=== PATIENT | female | born 1990 | race Two or more races ===

== ENCOUNTER 2016-09-11 19:32 | Observation (INO) | payer MEDICAID ==
[~2016-09-11 19:32] MED LIST: PRENPAK46 OR
== END 2016-09-11 21:27 | disposition home or self-care (01) | DRG 566 ==
LOC: LDRP 19:32
PROVIDERS: ADMIT Specialist; ATTEND Specialist
DX: O26.893 Other specified pregnancy related conditions, third trimester (principal); R10.2 Pelvic and perineal pain; N89.8 Other specified noninflammatory disorders of vagina; Z3A.34 34 weeks gestation of pregnancy
CPT/HCPCS: 59025; 81002; G0378

== ENCOUNTER 2016-10-15 08:20 | Inpatient (IN) | payer MEDICAID ==
[~2016-10-15] VITALS: Ht 154.9 cm; Wt 79.8 kg
[2016-10-15] VITALS (10 sets, daily range): BP systolic 108–133; BP diastolic 39–80
[2016-10-15] MEDS ORDERED: PREN-153 OR (09:06)
[2016-10-15 09:28] LABS: Basophils # (auto) 0 uL; Basophils % (auto) 0.2 % (0.0-2.0); Eosinophils # (auto) 0.1 uL; Eosinophils % (auto) 0.7 % (0.0-7.0); Hematocrit 33.5 % (36.0-46.0); Hemoglobin 11.2 g/dL (12.2-16.2); Lymphocytes # (auto) 1.8 uL; Lymphocytes % (auto) 14.6 % (10.0-50.0); Mean Corpuscular Hemoglobin 30.5 pg (28.0-32.0); Mean Corpuscular Hgb Conc. 33.5 g/dL (32.0-36.0); Mean Corpuscular Volume 90.9 fL (80.0-100.0); Mean Platelet Volume 12.7 fL (7.4-10.4); Monocytes # (auto) 0.9 uL; Monocytes % (auto) 7.2 % (0.0-12.0); Neutrophils # (auto) 9.7 uL; Neutrophils % (auto) 77.3 % (37.0-80.0); Platelet Count (auto) 113 10^3/uL (140-450); SUSPECT VIEW TRANSMISSION; White Blood Cell 12.6 10^3/uL (4.4-10.8)
[2016-10-15] MEDS: LACTATED RINGER'S 1,000 ML IV SCH ×3 (09:35→19:00)
[2016-10-15 09:46] LABS: Partial Thromboplastin Time 26.1 sec (22.64-33.71); Prothrombin Time 9.6 sec (9.37-12.3)
[2016-10-15 09:49] LABS: INR 0.89 (0.9-1.15)
[2016-10-15 10:05] LABS: Albumin 2.5 g/dL (3.4-5.0); BUN/Creatinine Ratio 12.2; Bilirubin, Total 0.3 mg/dL (0.2-1.0); Calcium 8.9 mg/dL (8.5-10.1); Potassium 3.9 mmol/L (3.5-5.1); Total Protein 6.6 g/dL (6.4-8.2)
[2016-10-15 10:10] LABS: Giant Platelets Few; Large Platelets MODERATE; Platelet Estimate Decreased
[2016-10-15] MEDS ORDERED: TETRACAINE 1% INJ 2 ML VIAL IJ ONE (11:42)
[2016-10-15] MEDS ORDERED: fentaNYL CITRATE 100 MCG/2 ML VL ONE (11:54)
[2016-10-15] MEDS ORDERED: MORPHINE SULF(PF) 0.5MG/ML 10ML VIAL ONE (11:54)
[2016-10-15] MEDS ORDERED: OXYTOCIN 10 UNIT/ML 10ML VIAL ONE (11:55)
[2016-10-15] MEDS ORDERED: ONDANSETRON HCL 4 MG/2 ML VIAL ONE (11:55)
[2016-10-15] MEDS ORDERED: ceFAZolin 1GM VL ONE (11:55)
[2016-10-15] MEDS ORDERED: ePHEDrine SULFATE 50 MG/ML AMP ONE (11:58)
[2016-10-15] MEDS ORDERED: HYDROmorphone HCL 2 MG/ML VL IV PRN ×3 (12:45→13:15)
[2016-10-15] MEDS ORDERED: KETOROLAC TROMETH 30 MG/ML 1ML VIAL IV PRN ×2 (12:45→13:15)
[2016-10-15] MEDS ORDERED: ONDANSETRON HCL 4 MG/2 ML VIAL IV PRN ×2 (13:00→13:15)
[2016-10-15] MEDS ORDERED: MORPHINE SULF INJ 2 MG/ML SYRINGE 1ML IV PRN (13:00)
[2016-10-15] MEDS: LACT. RINGERS/OXYTOCIN 20UNITS 1,000 ML IV SCH ×2 (13:00→20:18)
[2016-10-15] MEDS ORDERED: diphenhdrAMINE HCL 50 MG/1 ML VL IV PRN (13:15)
[2016-10-15] MEDS ORDERED: NALOXONE HCL 0.4 MG/ML VIAL IV PRN (13:15)
[2016-10-15] MEDS ORDERED: ONDANSETRON HCL 4 MG/2 ML VIAL IV ONE (13:15)
[2016-10-15] MEDS ORDERED: DEXAMETHASONE SOD PHOS 10MG/1ML VIAL INJ IV PRN (13:15)
[2016-10-15 19:11] LABS: Basophils # (auto) 0 uL; Basophils % (auto) 0.1 % (0.0-2.0); Eosinophils # (auto) 0 uL; Eosinophils % (auto) 0.1 % (0.0-7.0); Lymphocytes # (auto) 1.2 uL; Lymphocytes % (auto) 8.2 % (10.0-50.0); Mean Corpuscular Hemoglobin 30.1 pg (28.0-32.0); Mean Corpuscular Hgb Conc. 33.3 g/dL (32.0-36.0); Mean Corpuscular Volume 90.3 fL (80.0-100.0); Mean Platelet Volume 10.1 fL (7.4-10.4); Monocytes # (auto) 0.8 uL; Monocytes % (auto) 5.4 % (0.0-12.0); Neutrophils # (auto) 12.9 uL; Neutrophils % (auto) 86.2 % (37.0-80.0); Platelet Count (auto) 92 10^3/uL (140-450); Red Cell Distribution Width 14.7 % (11.6-16.0); White Blood Cell 14.9 10^3/uL (4.4-10.8)
[2016-10-15] MEDS: ceFAZolin 1GM/50ML D5W 50 ML IV SCH (20:22)
[2016-10-16] VITALS (10 sets, daily range): BP systolic 95–128; BP diastolic 48–74
[2016-10-16] MEDS: LACTATED RINGER'S 1,000 ML IV SCH (03:36)
[2016-10-16] MEDS: ceFAZolin 1GM/50ML D5W 50 ML IV SCH ×2 (03:36→11:39)
[2016-10-16 05:42] LABS: Basophils # (auto) 0 uL; Basophils % (auto) 0.3 % (0.0-2.0); Eosinophils # (auto) 0 uL; Eosinophils % (auto) 0.4 % (0.0-7.0); Hematocrit 33.1 % (36.0-46.0); Lymphocytes # (auto) 1.2 uL; Lymphocytes % (auto) 10.1 % (10.0-50.0); Mean Corpuscular Hemoglobin 30.3 pg (28.0-32.0); Mean Corpuscular Hgb Conc. 33.4 g/dL (32.0-36.0); Mean Corpuscular Volume 90.8 fL (80.0-100.0); Mean Platelet Volume 12.8 fL (7.4-10.4); Monocytes # (auto) 0.7 uL; Monocytes % (auto) 6.2 % (0.0-12.0); Neutrophils # (auto) 9.6 uL; Platelet Count (auto) 115 10^3/uL (140-450); Red Cell Distribution Width 14.9 % (11.6-16.0); SUSPECT VIEW TRANSMISSION; White Blood Cell 11.6 10^3/uL (4.4-10.8)
[2016-10-16] MEDS ORDERED: LACTATED RINGER'S 1,000 ML IV SCH (05:56)
[2016-10-16] MEDS ORDERED: BISACODYL 10 MG RECT SUPP PR PRN (08:30)
[2016-10-16] MEDS: DOCUSATE SOD 100 MG CAP PO SCH ×2 (09:45→21:38)
[2016-10-16] MEDS: DOCUSATE CALCIUM 240 MG CAP PO SCH (09:46)
[2016-10-16] MEDS: HYDROcodone-ACET 10/325MG TAB PO PRN ×2 (09:46→17:51)
[2016-10-16] MEDS: SIMETHICONE 80 MG CHEWABLE TABLET PO SCH ×3 (11:39→21:38)
[2016-10-16] MEDS: IBUPROFEN 800 MG TAB PO PRN (14:14)
[2016-10-17] VITALS (7 sets, daily range): BP systolic 96–125; BP diastolic 51–89
[2016-10-17] MEDS: HYDROcodone-ACET 10/325MG TAB PO PRN ×4 (00:24→22:38)
[2016-10-17] MEDS: IBUPROFEN 800 MG TAB PO PRN ×2 (03:47→20:34)
[2016-10-17] MEDS: SIMETHICONE 80 MG CHEWABLE TABLET PO SCH ×4 (06:10→22:38)
[2016-10-17] MEDS: DOCUSATE SOD 100 MG CAP PO SCH ×2 (09:26→22:38)
[2016-10-17] MEDS: DOCUSATE CALCIUM 240 MG CAP PO SCH (09:26)
[2016-10-18 04:00] VITALS: BP 125/76
[2016-10-18] MEDS ORDERED: TETANUS-DIPTH-ACEL PERTUSSIS 0.5ML SYRG IM ONE (05:30)
[2016-10-18] MEDS ORDERED: SIMETHICONE 80 MG CHEWABLE TABLET ONE (05:43)
[2016-10-18] MEDS: IBUPROFEN 800 MG TAB PO PRN (05:56)
[2016-10-18] MEDS: SIMETHICONE 80 MG CHEWABLE TABLET PO SCH ×2 (05:57→12:30)
[2016-10-18 07:30] VITALS: BP 120/50
[2016-10-18] MEDS: DOCUSATE CALCIUM 240 MG CAP PO SCH (10:02)
[2016-10-18] MEDS: DOCUSATE SOD 100 MG CAP PO SCH (10:02)
[2016-10-18] MEDS: HYDROcodone-ACET 10/325MG TAB PO PRN (10:08)
[2016-10-18 11:46] VITALS: BP 113/69
== END 2016-10-18 13:22 | disposition home or self-care (01) | DRG 540 ==
LOC: LDRP 08:20 → CENTRAL 10-17 13:58
PROVIDERS: ADMIT Obstetrics & Gynecology; ATTEND Obstetrics & Gynecology
PROC: 10D00Z1 Extraction of Products of Conception, Low, Open Approach (ICD-10-PCS; principal; 2016-10-15 12:09)
PROC: 30233S1 Transfusion of Nonautologous Globulin into Peripheral Vein, Percutaneous Approach (ICD-10-PCS; 2016-10-16)
DX: O34.219 Maternal care for unspecified type scar from previous cesarean delivery (principal); Z23 Encounter for immunization; Z37.0 Single live birth; Z3A.39 39 weeks gestation of pregnancy
CPT/HCPCS: 36415; 51702; 59025; 80053; 85025; 85610; 85730; 86850; 86870; 86900; 86901; 90384; 90715; 96366; 96372; 96374; 96375; J0690; J1885; J2405; J2590

== ENCOUNTER 2018-08-25 12:45 | Observation (INO) | payer MEDICAID ==
[~2018-08-25] VITALS: Ht 154.9 cm; Wt 68.0 kg
[~2018-08-25 12:45] MED LIST changes: +PREN-153 OR
[2019-03-30] MEDS ORDERED: TERBUTALINE SULFATE 1 MG/ML 1ML VIAL SC SCH (14:00)
[2019-03-30] MEDS ORDERED: LACTATED RINGER'S 1,000 ML IV ONE (14:00)
[2019-03-30 15:07] LABS: Urine Bacteria NONE SEEN /hpf (None Seen); Urine Blood Negative /uL (Negative); Urine Mucus FEW (None Seen); Urine Specific Gravity 1.011 (1.001-1.035); Urine WBC 4 /hpf (0 - 5)
== END 2019-03-30 16:10 | disposition home or self-care (01) | DRG 566 ==
LOC: LDRP 12:45 → UNDOADMOB 12:45 → LDRP 03-30 12:45 → UNDODISOB 03-30 16:10
PROVIDERS: ADMIT Specialist; ATTEND Specialist
DX: O24.419 Gestational diabetes mellitus in pregnancy, unspecified control (principal); O62.9 Abnormality of forces of labor, unspecified; Z3A.34 34 weeks gestation of pregnancy
CPT/HCPCS: 59025; 76815; 81001; 81002; 96372; G0378; J3105; 96375

== ENCOUNTER 2019-04-03 19:30 | Observation (INO) | payer MEDICAID | END 2019-04-03 20:36 | disposition home or self-care (01) | DRG 566 | LOC: LDRP 19:30 | PROVIDERS: ADMIT Specialist; ATTEND Specialist | DX: O30.003 Twin pregnancy, unspecified number of placenta and unspecified number of amniotic sacs, third trimester (principal); Z3A.31 31 weeks gestation of pregnancy | CPT/HCPCS: 59025; 81002; G0378 ==

== ENCOUNTER 2019-04-10 12:30 | Observation (INO) | payer MEDICAID ==
[2019-04-10] MEDS ORDERED: NIF10C PO (13:07)
== END 2019-04-10 13:25 | disposition home or self-care (01) | DRG 563 ==
LOC: LDRP 12:30
PROVIDERS: ADMIT Obstetrics & Gynecology; ATTEND Obstetrics & Gynecology
DX: O60.03 Preterm labor without delivery, third trimester (principal); Z3A.32 32 weeks gestation of pregnancy
CPT/HCPCS: 59025; 81002; G0378

== ENCOUNTER 2019-04-23 17:55 | Observation (INO) | payer MEDICAID ==
[~2019-04-23] VITALS: Ht 154.9 cm; Wt 83.0 kg
[~2019-04-23 17:55] MED LIST changes: +NIF10C PO; -PRENPAK46 OR
[2019-04-23] MEDS ORDERED: TERBUTALINE SULFATE 1 MG/ML 1ML VIAL SC SCH (18:30)
[2019-04-23] MEDS ORDERED: TERBUTALINE SULFATE 1 MG/ML 1ML VIAL SC ONE (18:36)
[2019-04-23] MEDS ORDERED: BETAMETHASONE ACET (6MG/ML) 5ML VIAL IM SCH (19:15)
[2019-04-24] MEDS ORDERED: BETAMETHASONE ACET (6MG/ML) 5ML VIAL IM SCH (10:00)
== END 2019-04-23 20:05 | disposition home or self-care (01) | DRG 566 ==
LOC: LDRP 17:55
PROVIDERS: ADMIT Obstetrics & Gynecology; ATTEND Obstetrics & Gynecology
DX: O26.893 Other specified pregnancy related conditions, third trimester (principal); O34.219 Maternal care for unspecified type scar from previous cesarean delivery; R10.2 Pelvic and perineal pain; Z3A.34 34 weeks gestation of pregnancy
CPT/HCPCS: 59025; 81002; 96372; G0378; J0702; J3105

== ENCOUNTER 2019-04-24 10:55 | Observation (INO) | payer MEDICAID ==
[~2019-04-24] VITALS: Ht 154.9 cm; Wt 83.0 kg
[2019-04-24] MEDS ORDERED: BETAMETHASONE ACET (6MG/ML) 5ML VIAL IM ONE (19:15)
== END 2019-04-24 20:00 | disposition home or self-care (01) | DRG 566 ==
LOC: LDRP 19:00
PROVIDERS: ADMIT Obstetrics & Gynecology; ATTEND Obstetrics & Gynecology
DX: O30.003 Twin pregnancy, unspecified number of placenta and unspecified number of amniotic sacs, third trimester (principal); Z3A.34 34 weeks gestation of pregnancy
CPT/HCPCS: 59025; 81002; 96372; G0378

== ENCOUNTER 2019-05-09 07:33 | Observation (INO) | payer MEDICAID ==
[2019-05-09] MEDS ORDERED: NIF10C GT (07:58)
[2019-05-09] MEDS ORDERED: PREN27TA7 OR (07:59)
== END 2019-05-09 08:25 | disposition home or self-care (01) | DRG 566 ==
LOC: LDRP 07:33
PROVIDERS: ADMIT Obstetrics & Gynecology; ATTEND Obstetrics & Gynecology
DX: O26.893 Other specified pregnancy related conditions, third trimester (principal); O30.003 Twin pregnancy, unspecified number of placenta and unspecified number of amniotic sacs, third trimester; R10.2 Pelvic and perineal pain; Z3A.36 36 weeks gestation of pregnancy
CPT/HCPCS: 59025; 81002; G0378

== ENCOUNTER 2019-05-12 09:22 | Observation (INO) | payer MEDICAID ==
[~2019-05-12 09:22] MED LIST changes: +NIF10C GT; +PREN27TA7 OR
== END 2019-05-12 10:50 | disposition home or self-care (01) | DRG 861 ==
LOC: LDRP 09:22
PROVIDERS: ADMIT Specialist; ATTEND Specialist
DX: Z34.83 Encounter for supervision of other normal pregnancy, third trimester (principal); Z3A.37 37 weeks gestation of pregnancy
CPT/HCPCS: 59025; 76818; 81002; G0378

== ENCOUNTER 2019-05-15 04:04 | Inpatient (IN) | payer MEDICAID ==
[~2019-05-15] VITALS: Ht 154.9 cm; Wt 85.3 kg
[~2019-05-15 04:04] MED LIST changes: -NIF10C GT; -NIF10C PO; -PREN-153 OR
[2019-05-15] MEDS ORDERED: LACTATED RINGER'S 1,000 ML IV SCH (04:15)
[2019-05-15 04:51] LABS: Basophils # (auto) 0 uL; Basophils % (auto) 0.4 % (0.0-2.0); Eosinophils # (auto) 0 uL; Eosinophils % (auto) 0.3 % (0.0-7.0); Hematocrit 27.9 % (36.0-46.0); Hemoglobin 9.3 g/dL (12.2-16.2); Lymphocytes # (auto) 1.9 uL; Lymphocytes % (auto) 20.2 % (10.0-50.0); Mean Corpuscular Hemoglobin 28.3 pg (28.0-32.0); Mean Corpuscular Hgb Conc. 33.3 g/dL (32.0-36.0); Mean Corpuscular Volume 84.9 fL (80.0-100.0); Monocytes # (auto) 0.6 uL; Monocytes % (auto) 6.6 % (0.0-12.0); Neutrophils # (auto) 6.7 uL; Neutrophils % (auto) 72.5 % (37.0-80.0); Platelet Count (auto) 81 10^3/uL (140-450); Red Blood Cells 3.29 10^6/uL (4.0-5.20); Red Cell Distribution Width 15.5 % (11.8-14.3); White Blood Cell 9.2 10^3/uL (4.4-10.8)
[2019-05-15 05:01] LABS: Urine Bacteria NONE SEEN /hpf (None Seen); Urine Blood Negative /uL (Negative); Urine Mucus FEW (None Seen); Urine WBC 2 /hpf (0 - 5)
[2019-05-15 05:12] LABS: Albumin 2.5 g/dL (3.4-5.0); Calcium 8.5 mg/dL (8.5-10.1); Potassium 3.8 mmol/L (3.5-5.1)
[2019-05-15 05:13] LABS: INR < 0.93 (0.9-1.15); Partial Thromboplastin Time 25.8 sec (23.64-32.05)
[2019-05-15 05:16] LABS: Alcohol, Urine < 3.0 mg/dL (0-5); Amphetamine Screen, Urine NEGATIVE (NEGATIVE); BUN/Creatinine Ratio 10.9; Barbiturate Scree,Urine NEGATIVE (NEGATIVE); Benzodiazephine Screen, Urine NEGATIVE (NEGATIVE); Bilirubin, Total 0.3 mg/dL (0.2-1.0); Cannabinoid Screen, Urine NEGATIVE (NEGATIVE); Cocaine Screen, Urine NEGATIVE (NEGATIVE); Opiate Scree,Urine NEGATIVE (NEGATIVE); Phencyclidine Screen, Urine NEGATIVE (NEGATIVE); Total Protein 6.6 g/dL (6.4-8.2)
[2019-05-15] MEDS ORDERED: TERBUTALINE SULFATE 1 MG/ML 1ML VIAL SC ONE (07:15)
[2019-05-16 05:06] LABS: RPR Non Reactive (Non Reactive)
== END 2019-05-15 09:00 | disposition short-term general hospital (02) | DRG 566 ==
LOC: LDRP 04:04
PROVIDERS: ADMIT Obstetrics & Gynecology; ATTEND Obstetrics & Gynecology
PROC: 0T9B70Z Drainage of Bladder with Drainage Device, Via Natural or Artificial Opening (ICD-10-PCS; principal; 2019-05-15)
DX: O99.113 Other diseases of the blood and blood-forming organs and certain disorders involving the immune mechanism complicating pregnancy, third trimester (principal); D69.3 Immune thrombocytopenic purpura; Z3A.37 37 weeks gestation of pregnancy
CPT/HCPCS: 36415; 51702; 59025; 80053; 80307; 81001; 84112; 85025; 85610; 85730; 86592; 86850; 86900; 86901; 96365; 96366; G0378